=== PATIENT | female | born 1965 | race Caucasian/White ===

== ENCOUNTER 2017-05-15 14:54 | Emergency (ER) | payer MEDICARE ==
[2017-05-15 16:28] LABS: #Monocytes 0.4 thou/uL (0.11-0.59); #Neutrophils 1.9 thou/uL (1.40-6.50); %Basophils 0.8 % (0.0-1.0); %Eosinophils 1.1 % (0.0-10.0); %Lymphocytes 30.3 % (21.0-51.0); %Monocytes 10.8 % (0.0-10.0); Hematocrit 38.2 % (36.0-47.0); Mean Platelet Volume 10.1 fL (7.4-10.4); Red Blood Cell (RBC) Count 3.92 mill/uL (4.20-5.40); White Blood Cell (WBC) Count 3.4 thou/uL (4.8-10.8)
[2017-05-15 16:36] LABS: Lactic Acid - Sepsis 1.2 mmol/L (0.5-2.2)
--- NOTE | 2017-05-15 16:37 | RAD ---
PORTABLE CHEST: 05/15/17 COMPARISON: 12/07/14 study. HISTORY: Hypoglycemia. Heart size is within normal limits considering portable technique. Mediastinal structures are unremar kable. The lungs are clear of infiltrates. IMPRESSION: No active intrathoracic disease. POS: [facility]
[2017-05-15 16:39] LABS: ALT (SGPT) 22 U/L (8-55); AST (SGOT) 29 U/L (5-34); Alkaline Phosphatase 80 U/L (40-150); Anion Gap 12 mmol/L (10-20); BUN (Urea Nitrogen) 17 mg/dL (9.8-20.1); Bilirubin, Total 0.4 mg/dL (0.2-1.2); Calc. Creatinine Clearance 0 mL/min (70-130); Calcium 9.2 mg/dL (7.8-10.44); Carbon Dioxide 27 mmol/L (22-29); Chloride 102 mmol/L (98-107); Estimated GFR-MDRD 37; Protein, Total 6.8 g/dL (6.0-8.3)
[2017-05-15 16:55] LABS: Bilirubin Negative (Negative); Blood, Urine Negative (Negative); Glucose, Urine (Dipstick) Negative (Negative); Ketone, Urine Negative (Negative); Nitrite Negative (Negative); Protein, Urine (Dipstick) Negative (Neg-Trace); Urobilinogen 0.2 mg/dL (0.2-1.0)
--- NOTE | 2017-06-20 14:09 | EKG ---
Test Reason : Blood Pressure : / mmHG Vent. Rate : 055 BPM Atrial Rate : 055 BPM P-R Int : 152 ms QRS Dur : 096 ms QT Int : 508 ms P-R-T Axes : 044 074 045 degrees QTc Int : 485 ms Sinus bradycardia No ST/T wave changes Abnormal ECG Confirmed by IOANA SAWYER DO ([id number]), script editor LEONORA FARLEY ([id number]) on 06/20/2017 2:08:46 PM Referred By: Confirmed By:IOANA SAWYER DO
== END 2017-05-15 19:47 | disposition home or self-care (01) ==
LOC: ERS 14:54
DX: E10.649 Type 1 diabetes mellitus with hypoglycemia without coma (principal); E03.9 Hypothyroidism, unspecified; J45.909 Unspecified asthma, uncomplicated; I12.9 Hypertensive chronic kidney disease with stage 1 through stage 4 chronic kidney disease, or unspecified chronic kidney disease; N18.3 Chronic kidney disease, stage 3 (moderate); F32.9 Major depressive disorder, single episode, unspecified; Z79.891 Long term (current) use of opiate analgesic; Z79.899 Other long term (current) drug therapy; Z79.4 Long term (current) use of insulin
CPT/HCPCS: 36415; 36416; 71010; 80053; 81003; 83605; 85025; 87040; 87086; 93005

== ENCOUNTER 2017-09-04 02:24 | Observation (INO) | payer MEDICARE, OTHER ==
[2017-09-04 03:23] LABS: #Basophils 0.1 thou/uL (0.0-0.2); #Eosinphils 0.1 thou/uL (0.0-0.7); #Lymphocytes 0.9 thou/uL (1.20-3.40); #Monocytes 0.4 thou/uL (0.11-0.59); #Neutrophils 5.2 thou/uL (1.40-6.50); %Basophils 0.8 % (0.0-1.0); %Eosinophils 2.1 % (0.0-10.0); %Monocytes 5.5 % (0.0-10.0); %Neutrophils 77.5 % (42.0-75.0); Hemoglobin 11.1 g/dL (12.0-16.0); Mean Corpuscular HGB CONC 34.3 g/dL (32.0-36.0); Mean Corpuscular Hemoglobin 34.1 pg (27.0-31.0); Mean Corpuscular Volume 99.4 fl (81.0-99.0); Mean Platelet Volume 9.7 fL (7.4-10.4); Platelet Count 107 thou/uL (130-400); RBC Distribution Width 13.9 % (11.5-14.5); Red Blood Cell (RBC) Count 3.26 mill/uL (4.20-5.40); White Blood Cell (WBC) Count 6.7 thou/uL (4.8-10.8)
[2017-09-04 03:28] LABS: INR-International Normal Ratio 1.1; Prothrombin Time 13.9 SEC (12.0-14.7)
[2017-09-04 03:31] LABS: ALT (SGPT) 21 U/L (8-55); AST (SGOT) 33 U/L (5-34); Albumin 2.8 g/dL (3.5-5.0); Alcohol Less than 10 mg/dL (Less than 10); Alkaline Phosphatase 57 U/L (40-150); Anion Gap 10 mmol/L (10-20); BUN (Urea Nitrogen) 14 mg/dL (9.8-20.1); Bilirubin, Total 0.3 mg/dL (0.2-1.2); CK (CPK) 278 U/L (29-168); Calc. Creatinine Clearance 0 mL/min (70-130); Calcium 7.6 mg/dL (7.8-10.44); Carbon Dioxide 22 mmol/L (22-29); Chloride 105 mmol/L (98-107); Estimated GFR-MDRD 55; Glucose 123 mg/dL (70-105); Lipase 7 U/L (8-78); Potassium 3.1 mmol/L (3.5-5.1); Protein, Total 4.8 g/dL (6.0-8.3); Sodium 134 mmol/L (136-145)
[2017-09-04] MEDS ORDERED: Ondansetron HCl/PF 4 MG/2 ML Vial ONE (03:43)
[2017-09-04] MEDS ORDERED: Morphine 4 MG/ML VIAL ONE (05:15)
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
[2017-09-04] MEDS ORDERED: Dextrose 5% in Water 1,000 ML IV PRN (09:29)
[2017-09-04] MEDS ORDERED: Ondansetron HCl/PF 4 MG/2 ML Vial IVP PRN (09:29)
[2017-09-04] MEDS ORDERED: Insulin Regular 300 UNITS/3 ML VIAL SC PRN (09:29)
[2017-09-04] MEDS ORDERED: Dextrose 50% Abboject 50 ML SYRINGE SLOW IVP PRN (09:29)
[2017-09-04] MEDS ORDERED: HYDROcodone/Acetaminophen 5/325 mg Tablet PO PRN ×2 (09:34)
--- NOTE | 2017-09-04 10:04 | RAD ---
TWO VIEWS THORACIC SPINE: HISTORY: T11 compression fracture. Post traumatic pain. COMPARISON: None. CORRELATION: CT from 09/04/2017. FINDINGS: There is mild irregularity involving the superior endplate of T11, compatible with a previously ident ified compression fracture. Remaining thoracic spine vertebral body heights are maintained. IMPRESSION: 1. T11 compression fracture. 2. Minimal loss of vertebral body height. POS: [facility]
[2017-09-04] MEDS: Pregabalin 75 MG CAP PO SCH ×2 (10:37→21:51)
[2017-09-04] MEDS: HYDROcodone/Acetaminophen 10/325 mg Tablet PO PRN ×3 (10:50→21:50)
[2017-09-04 12:18] VITALS: BMI 32.5
[2017-09-04] MEDS ORDERED: ISOVUE-370 76%-LOCM 1 ML ONE (13:37)
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
[2017-09-04] MEDS: Mometasone/Formoterol 120 PUFF INHALER INH SCH (20:02)
[2017-09-04] MEDS ORDERED: Non-Formulary Item 1 EACH (Cyclobenzaprine Hcl [Cyclobenzaprine Hcl] 5 MG) PO SCH (21:00)
[2017-09-04] MEDS ORDERED: NIZATIDINE 150 MG PO SCH (21:00)
[2017-09-04] MEDS ORDERED: Non-Formulary Item 1 EACH (Budesonide-Formoterol [Symbicort 160-4.5] 2 PUFF) INH SCH (21:00)
[2017-09-04] MEDS ORDERED: Famotidine 20 MG TAB PO SCH (21:00)
[2017-09-04] MEDS: Hydroxychloroquine Sulfate 200 MG TAB PO SCH (21:51)
[2017-09-04] MEDS: Cyclobenzaprine 10 MG TAB PO SCH (21:51)
[2017-09-04] MEDS: Famotidine 20 MG TAB PO SCH (21:52)
[2017-09-05 05:14] LABS: #Eosinphils 0.1 thou/uL (0.0-0.7); #Monocytes 0.5 thou/uL (0.11-0.59); #Neutrophils 2.1 thou/uL (1.40-6.50); %Basophils 1.2 % (0.0-1.0); %Eosinophils 2.3 % (0.0-10.0); %Lymphocytes 26.6 % (21.0-51.0); %Monocytes 12.3 % (0.0-10.0); %Neutrophils 57.6 % (42.0-75.0); Hemoglobin 10.9 g/dL (12.0-16.0); Mean Corpuscular HGB CONC 34.4 g/dL (32.0-36.0); Mean Corpuscular Hemoglobin 33.7 pg (27.0-31.0); Mean Corpuscular Volume 97.9 fl (81.0-99.0); Mean Platelet Volume 9.1 fL (7.4-10.4); Platelet Count 116 thou/uL (130-400); RBC Distribution Width 13.7 % (11.5-14.5); Red Blood Cell (RBC) Count 3.25 mill/uL (4.20-5.40); White Blood Cell (WBC) Count 3.6 thou/uL (4.8-10.8)
[2017-09-05 05:26] LABS: Anion Gap 8 mmol/L (10-20); BUN (Urea Nitrogen) 21 mg/dL (9.8-20.1); Calc. Creatinine Clearance 69 mL/min (70-130); Calcium 8.6 mg/dL (7.8-10.44); Carbon Dioxide 29 mmol/L (22-29); Chloride 105 mmol/L (98-107); Estimated GFR-MDRD 44; Glucose 152 mg/dL (70-105); Potassium 4.3 mmol/L (3.5-5.1); Sodium 138 mmol/L (136-145)
[2017-09-05] MEDS: HYDROcodone/Acetaminophen 10/325 mg Tablet PO PRN ×4 (06:12→23:42)
[2017-09-05] MEDS: Mometasone/Formoterol 120 PUFF INHALER INH SCH ×2 (06:47→18:57)
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
[2017-09-05] MEDS: Folic Acid 1 MG TAB PO SCH (07:54)
[2017-09-05] MEDS: Famotidine 20 MG TAB PO SCH ×2 (07:54→20:07)
[2017-09-05] MEDS: Pregabalin 75 MG CAP PO SCH ×2 (07:54→20:07)
[2017-09-05] MEDS: Levothyroxine Sodium 125 MCG TAB PO SCH (07:54)
[2017-09-05] MEDS: Hydroxychloroquine Sulfate 200 MG TAB PO SCH ×2 (07:55→20:07)
[2017-09-05] MEDS ORDERED: Non-Formulary Item 1 EACH (Esomeprazole Magnesium [Nexium] 40 MG) PO SCH (08:00)
[2017-09-05] MEDS ORDERED: Cyanocobalamin (Vitamin B-12) 1,000 MCG TAB PO SCH (09:00)
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
[2017-09-05] MEDS: Cyclobenzaprine 10 MG TAB PO SCH (20:06)
[2017-09-06] MEDS: Hydroxychloroquine Sulfate 200 MG TAB PO SCH (08:11)
[2017-09-06] MEDS: Levothyroxine Sodium 125 MCG TAB PO SCH (08:11)
[2017-09-06] MEDS: Pregabalin 75 MG CAP PO SCH (08:11)
[2017-09-06] MEDS: Folic Acid 1 MG TAB PO SCH (08:11)
[2017-09-06] MEDS: Famotidine 20 MG TAB PO SCH (08:11)
[2017-09-06] MEDS: Mometasone/Formoterol 120 PUFF INHALER INH SCH (10:08)
[2017-09-06 11:58] VITALS: BP 147/88; TEMP 98.4
[2017-09-06] MEDS: HYDROcodone/Acetaminophen 10/325 mg Tablet PO PRN (14:53)
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
== END 2017-09-06 15:49 | disposition home or self-care (01) ==
LOC: ERS 02:24 → SURG B 07:55
PROVIDERS: ADMIT Specialist; ATTEND Specialist
DX: S22.088A Other fracture of T11-T12 vertebra, initial encounter for closed fracture (principal); S22.20XA Unspecified fracture of sternum, initial encounter for closed fracture; G89.11 Acute pain due to trauma; G89.29 Other chronic pain; M35.9 Systemic involvement of connective tissue, unspecified; E03.9 Hypothyroidism, unspecified; J45.909 Unspecified asthma, uncomplicated; E10.22 Type 1 diabetes mellitus with diabetic chronic kidney disease; E10.649 Type 1 diabetes mellitus with hypoglycemia without coma; I12.9 Hypertensive chronic kidney disease with stage 1 through stage 4 chronic kidney disease, or unspecified chronic kidney disease; N18.3 Chronic kidney disease, stage 3 (moderate); M79.7 Fibromyalgia; F32.9 Major depressive disorder, single episode, unspecified; D51.0 Vitamin B12 deficiency anemia due to intrinsic factor deficiency; R91.8 Other nonspecific abnormal finding of lung field; V47.5XXA Car driver injured in collision with fixed or stationary object in traffic accident, initial encounter; Z79.51 Long term (current) use of inhaled steroids; Z79.890 Hormone replacement therapy; Z79.899 Other long term (current) drug therapy; Z88.0 Allergy status to penicillin; Z88.1 Allergy status to other antibiotic agents; Z90.710 Acquired absence of both cervix and uterus; Z98.890 Other specified postprocedural states
CPT/HCPCS: 70450; 71045; 71260; 72070; 72125; 72170; 73130; 73564 ×2; 74177; 80048; 80053; 80307; 82533; 82550; 82962 ×3; 83605; 83690; 85025 ×2; 85610; 85730; 94640 ×3; 96361; 96374; 96375; 97116 ×2; 97139 ×3; 97530; 98960; 99285; G0378 ×2; G8978; G8979; 36415; 36416; G0390; J2270; J2405; J7620

== ENCOUNTER 2017-10-05 13:26 | Outpatient (CLI) | payer MEDICARE ==
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
== END 2017-10-05 13:27 | disposition home or self-care (01) ==
LOC: TBSIIMAG 13:26
PROVIDERS: ATTEND Neurological Surgery
DX: S22.089D Unspecified fracture of T11-T12 vertebra, subsequent encounter for fracture with routine healing (principal); M51.35 Other intervertebral disc degeneration, thoracolumbar region
CPT/HCPCS: 72072

== ENCOUNTER 2017-11-02 12:54 | Outpatient (CLI) | payer MEDICARE ==
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
== END 2017-11-02 12:55 | disposition home or self-care (01) ==
LOC: TBSIIMAG 12:54
PROVIDERS: ATTEND Neurological Surgery
DX: M48.56XA Collapsed vertebra, not elsewhere classified, lumbar region, initial encounter for fracture (principal); M54.6 Pain in thoracic spine; M47.894 Other spondylosis, thoracic region
CPT/HCPCS: 72070

== ENCOUNTER 2017-12-04 13:01 | Outpatient (CLI) | payer MEDICARE, OTHER ==
--- NOTE | 2017-12-04 14:29 | RAD ---
THORACIC SPINE 3 VIEWS: Date: 12/04/17 HISTORY: T11 fracture. Back pain. COMPARISON: 11/02/17. FINDINGS: There are 12 thoracic-type vertebrae. Pedicles are intact. Mild T11 superior end plate compression fr acture is stable compared to the previous exam. Other vertebral body heights and alignment are mainta ined. Mild osteophytosis. Osseous structures are demineralized. IMPRESSION: 1. Mild T11 superior end plate compression fracture, stable. 2. Osteoporosis. POS: [facility]
== END 2017-12-04 13:02 | disposition home or self-care (01) ==
LOC: TBSIIMAG 13:01
PROVIDERS: ATTEND Neurological Surgery
DX: S22.089A Unspecified fracture of T11-T12 vertebra, initial encounter for closed fracture (principal); M81.0 Age-related osteoporosis without current pathological fracture
CPT/HCPCS: 72070

== ENCOUNTER 2020-03-28 02:07 | Observation (INO) | payer MEDICARE, OTHER ==
[2020-03-28 02:45] LABS: Hemoglobin 12.2 g/dL (12.0-16.0); Mean Corpuscular HGB CONC 33.9 g/dL (32.0-36.0); Mean Corpuscular Hemoglobin 33.8 pg (27.0-31.0); Mean Corpuscular Volume 99.7 fL (78.0-98.0); RBC Distribution Width 14.7 % (11.5-14.5); Red Blood Cell (RBC) Count 3.61 mill/uL (4.20-5.40); White Blood Cell (WBC) Count 7.3 thou/uL (4.8-10.8)
[2020-03-28 03:00] LABS: #Eosinphils 0.1 thou/uL (0.0-0.7); #Lymphocytes 0.8 thou/uL (1.20-3.40); #Monocytes 0.4 thou/uL (0.11-0.59); %Basophils 0.6 % (0.0-1.0); %Eosinophils 1.2 % (0.0-10.0); %Lymphocytes 10.9 % (21.0-51.0); %Monocytes 5.5 % (0.0-10.0); %Neutrophils 81.8 % (42.0-75.0); Mean Platelet Volume 10.8 fL (7.4-10.4); Platelet Count 111 thou/uL (130-400); Platelet Morphology Comment Appears Decreased
[2020-03-28 03:12] LABS: ALT (SGPT) 21 U/L (8-55); AST (SGOT) 26 U/L (5-34); Alkaline Phosphatase 72 U/L (40-110); Anion Gap 13 mmol/L (10-20); BUN (Urea Nitrogen) 16 mg/dL (9.8-20.1); Bilirubin, Total 0.7 mg/dL (0.2-1.2); Calc. Creatinine Clearance 0 mL/min (70-130); Calcium 7.7 mg/dL (7.8-10.44); Carbon Dioxide 24 mmol/L (22-29); Chloride 105 mmol/L (98-107); Estimated GFR-MDRD 27; Globulin 2.1 g/dL (2.4-3.5); Glucose 271 mg/dL (70-105); Lipase 8 U/L (8-78); Protein, Total 5.1 g/dL (6.0-8.3); Sodium 137 mmol/L (136-145)
--- NOTE | 2020-03-28 04:36 | PDOC.HHP ---
Hospitalist HPI - History of Present Illness Nausea and vomiting and diarrhea History of Present Illness: 54-year-old woman with a history of fibromyalgia, type 1 diabetes on insulin pump, gastroparesis was brought to the emergency department due to 2-day history of nausea vomiting and diarrhea and generalized weakness. called EMS last night. EMS found her with a blood pressure of 60/40. Her blood pressure responded well to 1 L bolus as she was normotensive by the time she arrived to the ED. CT abdomen and pelvis done report thickened colonic wall colon suggestive of colitis. She has no leukocytosis and no fever, and does not meet criteria for sepsis. feels patient might of had an infection. She is admitted for further management. ED Course: Patient given another 1 L normal saline bolus in the ED. Hospitalist ROS - Review of Systems Other: Except as documented, all other systems reviewed and negative. Hospitalist History - Past Medical History Cardiac: reports: HTN Pulmonary: reports: asthma Heme/Onc: reports: Anemia NOS Psych: reports: Anxiety, Depression Rheumatologic: reports: Fibromyalgia Renal/: reports: Chronic renal failure Endocrine: reports: Diabetes, Hypothyroidism - Past Surgical History Past Surgical History: reports: Hysterectomy - Family History Family History: reports: diabetes mellitus (Maternal grandmother had diabetes.) - Social History Smoking Status: Never smoker Alcohol: reports: None Drugs: reports: none - Exam General Appearance: NAD, awake alert Eye: PERRL, anicteric sclera ENT: normocephalic atraumatic, no oropharyngeal lesions, moist mucosa Neck: supple, symmetric, no JVD, no thyromegaly Heart: RRR, no murmur, normal peripheral pulses Respiratory: CTAB, no wheezes, no rales, no ronchi, normal chest expansion Gastrointestinal: soft, non-tender, non-distended, normal bowel sounds, no palpable masses Extremities: no cyanosis, no edema Skin: normal turgor, no rashes Neurological: cranial nerve grossly intact, no weakness, no focal deficits Musculoskeletal: normal tone, normal strength Psychiatric: normal behavior, A&O x 3 Hospitalist Results - Labs Result Diagrams: 03/28/20 02:35 03/28/20 02:35 Lab results: WBC 7.3 thou/uL (4.8-10.8) 03/28/20 02:35 Hgb 12.2 g/dL (12.0-16.0) 03/28/20 02:35 Hct 36.0 % (36.0-47.0) 03/28/20 02:35 MCV 99.7 fL (78.0-98.0) H 03/28/20 02:35 Plt Count 111 thou/uL (130-400) L 03/28/20 02:35 Neutrophils % 81.8 % (42.0-75.0) H 03/28/20 02:35 Sodium 137 mmol/L (136-145) 03/28/20 02:35 Potassium 5.0 mmol/L (3.5-5.1) 03/28/20 02:35 Chloride 105 mmol/L (98-107) 03/28/20 02:35 Carbon Dioxide 24 mmol/L (22-29) 03/28/20 02:35 BUN 16 mg/dL (9.8-20.1) 03/28/20 02:35 Creatinine 1.95 mg/dL (0.6-1.1) H 03/28/20 02:35 Glucose 271 mg/dL (70-105) H 03/28/20 02:35 Calcium 7.7 mg/dL (7.8-10.44) L 03/28/20 02:35 Total Bilirubin 0.7 mg/dL (0.2-1.2) 03/28/20 02:35 AST 26 U/L (5-34) 03/28/20 02:35 ALT 21 U/L (8-55) 03/28/20 02:35 Alkaline Phosphatase 72 U/L (40-110) 03/28/20 02:35 Troponin I Less than 0.010 ng/mL (< 0.028) 03/28/20 02:35 Serum Total Protein 5.1 g/dL (6.0-8.3) L 03/28/20 02:35 Albumin 3.0 g/dL (3.5-5.0) L 03/28/20 02:35 Lipase 8 U/L (8-78) 03/28/20 02:35 Hospitalist H&P A/P - Problem (1) Hypovolemic shock Code(s): R57.1 - HYPOVOLEMIC SHOCK Status: Acute (2) Intractable nausea and vomiting Code(s): R11.2 - NAUSEA WITH VOMITING, UNSPECIFIED Status: Acute (3) Acute worsening of stage 3 chronic kidney disease Code(s): N18.3 - CHRONIC KIDNEY DISEASE, STAGE 3 (MODERATE) Status: Acute (4) Diabetes type 1, controlled Code(s): E10.9 - TYPE 1 DIABETES MELLITUS WITHOUT COMPLICATIONS Status: Acute (5) Hx of diabetic gastroparesis Code(s): Z86.39 - PERSONAL HISTORY OF ENDO, NUTRITIONAL AND METABOLIC DISEASE Status: Acute (6) Colitis Code(s): K52.9 - NONINFECTIVE GASTROENTERITIS AND COLITIS, UNSPECIFIED Status: Acute - Plan Plan: Admit to telemetry. Aggressive IV hydration Start IV ciprofloxacin and Flagyl for possible infectious colitis. Continue insulin pump for glucose management. Antiemetics as needed. Add PPI. Clear liquid diet as patient will tolerate. Monitor renal function.
[2020-03-28] MEDS ORDERED: Ondansetron PF 4 MG/2 ML Vial IVP PRN (05:13)
[2020-03-28] MEDS ORDERED: Acetaminophen 325 MG TAB PO PRN (05:13)
[2020-03-28] MEDS ORDERED: Sodium Chloride 0.9% 1,000 ML IV SCH (05:15)
[2020-03-28 06:25] VITALS: BMI 30.7
[2020-03-28] MEDS: metroNIDAZOLE 500 MG in Premix Bag 1 BAG IVPB SCH ×3 (06:37→17:08)
[2020-03-28] MEDS ORDERED: Dextrose 50% Abboject 50 ML SYRINGE ONE (07:21)
[2020-03-28] MEDS ORDERED: Dextrose 5 % And 0.9 % NaCl 1,000 ML IV SCH (07:30)
[2020-03-28] MEDS: Heparin 5,000 UNITS/ML VIAL SC SCH ×3 (08:03→21:49)
--- NOTE | 2020-03-28 08:04 | RAD ---
XR Chest 1 View Portable History: Hypotension Comparison: Radiograph August 2017 Findings: Chronic interstitial fibrosis and cardiomegaly is similar. Calcified granuloma right midlun g is similar. No acute osseous abnormality. No confluent airspace consolidation, pneumothorax or effusion. Impression: Chronic findings. No acute intrathoracic abnormality.
--- NOTE | 2020-03-28 08:55 | CT ---
PRELIMINARY REPORT/[facility]/EMERGENCY AFTER HOURS PROCEDURE: EXAM: CT Abdomen and Pelvis with Intravenous Contrast CLINICAL HISTORY: PT HAS HAD DIARRHEA/VOMITING FOR 2 DAYS. TECHNIQUE: Axial computed tomography images of the abdomen and pelvis with intravenous contrast. CONTRAST: With; ISOVUE 370,100mL COMPARISON: None provided. FINDINGS: LUNG BASES: Septal groundglass pattern in the lower lungs suggests combination of interstitial edema and atelectasis. LIVER: Unremarkable. GALLBLADDER AND BILE DUCTS: Unremarkable. No calcified stone. No ductal dilation. PANCREAS: Unremarkable. SPLEEN: Unremarkable. ADRENAL GLANDS: Unremarkable. KIDNEYS, URETERS, AND BLADDER: Unremarkable. No hydronephrosis or nephrolithiasis. No ureteral or maryjane dder calculi. STOMACH AND BOWEL: Diffuse wall thickening of the distal colon from the mid transverse colon to the s igmoid colon. Proximal large bowel shows moderate distention with air and fecal material raising conc jina for partial obstruction. APPENDIX: The appendix is not visualized. No inflammatory changes dentified in the right lower quadra nt and pericecal distribution. PERITONEUM: There is trace fluid in the pelvis. No evidence for free air. LYMPH NODES: No lymphadenopathy. REPRODUCTIVE: Unremarkable as visualized. VASCULATURE: No aortic aneurysm. BONES: No fracture or suspicious osseous abnormality. ABDOMINAL WALL AND SOFT TISSUES: Unremarkable. IMPRESSION: Findings suggestive of a distal colitis involving the mid transverse left and sigmoid col on which may be infectious or inflammatory Large amount of becoming too in the proximal colon raising concern for partial obstruction. ELECTRONICALLY SIGNED BY: Dodie Beatty MD Mar 28, 2020 3:10:50 AM CDT FINAL REPORT EMERGENT AFTER HOURS CT OF THE ABDOMEN AND PELVIS WITH CONTRAST: FINDINGS/IMPRESSION: I agree with the findings and impression given in the preliminary report per [facility] physici an. There are areas of focal thickening in the colon near the left splenic flexor and in the sigmoid colon. These are discontinuous with sparing of some of the descending colon. These are nonspecific and could represent an infectious or inflammatory colitis. POS: [facility]
[2020-03-28] MEDS ORDERED: Iopamidol-370 76% 500 ML 1 ML ONE (08:57)
[2020-03-28 09:41] LABS: Glucose 210 mg/dL (70-105)
[2020-03-28] MEDS: Famotidine 20 MG TAB PO SCH ×2 (12:26→21:49)
[2020-03-28 13:17] LABS: SARS-CoV-2 MS2 Positive; SARS-CoV-2 N Gene Negative; SARS-CoV-2 S Gene Negative; SARS-CoV-2 by NAA Not Detected (NotDetected); SARS-CoV-2 orf1ab Negative
[2020-03-28 13:32] LABS: Glucose 410 mg/dL (70-105)
--- NOTE | 2020-03-28 13:35 | PDOC.HOSPP ---
- Subjective Encounter Date: 03/28/20 Encounter Time: 12:00 Subjective: Ms. Ventura was seen today in follow-up of hypoglycemia, and lethargy. She was noted by her nurse to be drowsy. She is oriented X 4 but will fall asleep easily. She does not have any complaints such as pain, nausea or vomiting. - Objective Vital Signs & Weight: Vital Signs (12 hours) Temp Pulse Resp BP Pulse Ox 03/28/20 11:40 73 12 118/56 L 93 L 03/28/20 07:17 98.6 F 78 12 111/53 L 94 L 03/28/20 06:08 99.3 F 82 17 118/58 L 95 Weight Weight 179 lb I&O: 03/27/20 03/28/20 03/29/20 06:59 06:59 06:59 Intake Total 785 Balance 785 Result Diagrams: 03/28/20 02:35 03/28/20 12:40 Additional Labs: Accuchecks 03/28/20 03/28/20 03/28/20 11:18 08:00 07:23 POC Glucose 302 H 128 H 69 L 03/28/20 06:26 POC Glucose 88 Hospitalist ROS - Medication Medications: Active Medications Generic Name Dose Route Start Last Admin Trade Name Freq PRN Reason Stop Dose Admin Famotidine 20 mg 03/28/20 09:00 03/28/20 12:26 Famotidine 20 Mg Tab PO Not Given BID ELIO Heparin Sodium (Porcine) 5,000 units 03/28/20 09:00 03/28/20 08:03 Heparin 5,000 Units/Ml Vial SC 5,000 units TID ELIO Administration Ciprofloxacin/Dextrose 400 mg/ 200 mls @ 200 mls/hr 03/28/20 08:00 03/28/20 08:03 Device IVPB 200 mls 0800,2000 ELIO Administration Metronidazole 500 mg/ Device 100 mls @ 100 mls/hr 03/28/20 06:00 03/28/20 12:25 IVPB 100 mls Q6HR ELIO Administration Dextrose/Sodium Chloride 1,000 mls @ 100 mls/hr 03/28/20 07:30 03/28/20 08:02 D5 0.9% Ns IV 1,000 mls .Q10H ELIO Administration - Exam Eye: PERRL, anicteric sclera Heart: RRR, no murmur, no gallops, no rubs, normal peripheral pulses Respiratory: CTAB, no wheezes, no rales, no ronchi, normal chest expansion, no tachypnea Gastrointestinal: soft, non-tender, non-distended, normal bowel sounds, no palpable masses, no hepatomegaly Extremities: no cyanosis, no edema Hosp A/P (1) Hypoglycemia Code(s): E16.2 - HYPOGLYCEMIA, UNSPECIFIED Status: Acute (2) Colitis Code(s): K52.9 - NONINFECTIVE GASTROENTERITIS AND COLITIS, UNSPECIFIED Status: Acute (3) Diabetes type 1, controlled Code(s): E10.9 - TYPE 1 DIABETES MELLITUS WITHOUT COMPLICATIONS Status: Chronic (4) Hypertension Code(s): I10 - ESSENTIAL (PRIMARY) HYPERTENSION Status: Chronic - Plan * Hypoglycemia- this may be due to colitis- she briefly required D% drip, now he r blood glucose is elevated- will place her back on her insulin pump, at 2/3 her basal rate with self correction * She will need to be monitored at least one more night to insure stability of her glucose levels. Will change her status to inpatient * Metabolic encephalopathy- I suspect due to hypoglycemia- and colitis- will monitor * HTN- blood pressure is stable * Colitis- continue Cipro and Flagyl, advance diet as tolerated
[2020-03-28] MEDS ORDERED: Fluticasone Propionate Nasal Spray 16 gm Bottle NASAL PRN (13:38)
[2020-03-28] MEDS ORDERED: Methotrexate Sodium 2.5 MG TAB PO SCH (13:45)
[2020-03-28 17:40] LABS: Glucose 328 mg/dL (70-105)
[2020-03-28] MEDS: Mometasone 200 MCG/Formoterol 5 MCG 120 PUFF INHALER INH SCH (18:26)
[2020-03-28] MEDS ORDERED: Atorvastatin Calcium 10 MG TAB PO SCH (21:00)
[2020-03-28 21:32] LABS: Glucose 289 mg/dL (70-105)
[2020-03-28] MEDS: Hydroxychloroquine Sulfate 200 MG TAB PO SCH (21:50)
[2020-03-29] MEDS: metroNIDAZOLE 500 MG in Premix Bag 1 BAG IVPB SCH ×3 (01:13→11:16)
[2020-03-29 05:16] LABS: #Basophils 0.1 thou/uL (0.0-0.2); #Eosinphils 0.1 thou/uL (0.0-0.7); #Monocytes 0.4 thou/uL (0.11-0.59); #Neutrophils 2.3 thou/uL (1.40-6.50); %Basophils 1.7 % (0.0-1.0); %Eosinophils 2.9 % (0.0-10.0); %Lymphocytes 25.2 % (21.0-51.0); %Monocytes 11.4 % (0.0-10.0); %Neutrophils 58.8 % (42.0-75.0); Hemoglobin 12.1 g/dL (12.0-16.0); Mean Corpuscular HGB CONC 33.8 g/dL (32.0-36.0); Mean Corpuscular Hemoglobin 33.7 pg (27.0-31.0); Mean Corpuscular Volume 99.8 fL (78.0-98.0); Mean Platelet Volume 10.9 fL (7.4-10.4); Platelet Count 118 thou/uL (130-400); RBC Distribution Width 14.7 % (11.5-14.5); Red Blood Cell (RBC) Count 3.59 mill/uL (4.20-5.40); White Blood Cell (WBC) Count 3.9 thou/uL (4.8-10.8)
[2020-03-29 05:30] LABS: Anion Gap 11 mmol/L (10-20); BUN (Urea Nitrogen) 12 mg/dL (9.8-20.1); Calc. Creatinine Clearance 57 mL/min (70-130); Calcium 7.8 mg/dL (7.8-10.44); Carbon Dioxide 23 mmol/L (22-29); Chloride 109 mmol/L (98-107); Estimated GFR-MDRD 38; Glucose 157 mg/dL (70-105); Potassium 4.2 mmol/L (3.5-5.1); Sodium 139 mmol/L (136-145)
[2020-03-29] MEDS ORDERED: Levothyroxine Sodium 125 MCG TAB PO SCH (06:00)
[2020-03-29] MEDS: Mometasone 200 MCG/Formoterol 5 MCG 120 PUFF INHALER INH SCH (06:55)
[2020-03-29] MEDS: Heparin 5,000 UNITS/ML VIAL SC SCH (08:01)
[2020-03-29] MEDS: Hydroxychloroquine Sulfate 200 MG TAB PO SCH (08:02)
--- NOTE | 2020-03-29 08:23 | PDOC.HOSPP ---
- Subjective Encounter Date: 03/29/20 Encounter Time: 08:21 Subjective: Ms. Ventura was seen today in follow-up of hypoglycemia and colitis. She is feeling better today. She is much more alert. - Objective Vital Signs & Weight: Vital Signs (12 hours) Temp Pulse Resp BP BP Pulse Ox 03/29/20 07:08 98.2 F 62 16 148/66 H 99 03/29/20 04:19 97.9 F 63 16 142/64 H 99 03/29/20 01:08 98.5 F 65 12 127/60 96 03/28/20 21:29 98.6 F 73 12 110/51 L 100 Weight Weight 178 lb 9.6 oz I&O: 03/28/20 03/29/20 03/30/20 06:59 06:59 06:59 Intake Total 2247 Output Total 2030 Balance 217 Result Diagrams: 03/29/20 04:48 03/29/20 08:06 Additional Labs: Accuchecks 03/29/20 03/29/20 03/29/20 07:18 04:22 01:14 POC Glucose 107 H 160 H 207 H 03/28/20 03/28/20 14:51 11:18 POC Glucose 348 H 302 H Hospitalist ROS - Medication Medications: Active Medications Generic Name Dose Route Start Last Admin Trade Name Freq PRN Reason Stop Dose Admin Acetaminophen 650 mg 03/28/20 05:13 03/28/20 21:57 Acetaminophen 325 Mg Tab PO 650 mg Q4H PRN Administration Headache/Fever/Mild Pain (1-3) Atorvastatin Calcium 10 mg 03/28/20 21:00 03/28/20 21:49 Atorvastatin Calcium 10 Mg Tab PO 10 mg HS ELIO Administration Bupropion HCl 150 mg 03/29/20 09:00 03/29/20 08:02 Bupropion 150 Mg Xl Tab PO 150 mg QAM ELIO Administration Estradiol 2 mg 03/29/20 09:00 03/29/20 08:02 Estradiol 1 Mg Tab PO 2 mg DAILY ELIO Administration Folic Acid 1 mg 03/29/20 09:00 03/29/20 08:02 Folic Acid 1 Mg Tab PO 1 mg DAILY ELIO Administration Furosemide 40 mg 03/29/20 09:00 03/29/20 08:02 Furosemide 40 Mg Tab PO 40 mg DAILY ELIO Administration Heparin Sodium (Porcine) 5,000 units 03/28/20 09:00 03/29/20 08:01 Heparin 5,000 Units/Ml Vial SC 5,000 units TID ELIO Administration Hydroxychloroquine Sulfate 200 mg 03/28/20 21:00 03/29/20 08:02 Hydroxychloroquine Sulfate 200 Mg Tab PO 200 mg BID ELIO Administration Ciprofloxacin/Dextrose 400 mg/ 200 mls @ 200 mls/hr 03/28/20 08:00 03/29/20 08:02 Device IVPB 200 mls 0800,2000 ELIO Administration Metronidazole 500 mg/ Device 100 mls @ 100 mls/hr 03/28/20 06:00 03/29/20 05:53 IVPB 100 mls Q6HR ELIO Administration Levothyroxine Sodium 125 mcg 03/29/20 06:00 03/29/20 05:52 Levothyroxine Sodium 125 Mcg Tab PO 125 mcg 0600 ELIO Administration Losartan Potassium 25 mg 03/29/20 09:00 03/29/20 08:02 Losartan 25 Mg Tab PO 25 mg DAILY ELIO Administration Methotrexate Sodium 20 mg 03/28/20 13:45 03/28/20 15:35 Methotrexate Sodium 2.5 Mg Tab PO Not Given Q7D ELIO Mometasone Furoate/Formoterol Fumar 2 puff 03/28/20 18:30 03/29/20 06:55 Mometasone 200 Mcg/Formoterol 5 Mcg 120 Puff Inhaler INH 2 puff BID-RT ELIO Administration Prednisone 10 mg 03/29/20 09:00 03/29/20 08:02 Prednisone 5 Mg Tab PO 10 mg DAILY ELIO Administration - Exam Eye: PERRL Heart: RRR, no murmur, no gallops, no rubs, normal peripheral pulses Respiratory: CTAB, no wheezes, no rales, no ronchi, normal chest expansion Gastrointestinal: soft, non-tender, non-distended, normal bowel sounds, no palpable masses, no hepatomegaly Extremities: no cyanosis, no edema Hosp A/P (1) Hypoglycemia Code(s): E16.2 - HYPOGLYCEMIA, UNSPECIFIED Status: Acute (2) Colitis Code(s): K52.9 - NONINFECTIVE GASTROENTERITIS AND COLITIS, UNSPECIFIED Status: Acute (3) Diabetes type 1, controlled Code(s): E10.9 - TYPE 1 DIABETES MELLITUS WITHOUT COMPLICATIONS Status: Chronic (4) Hypertension Code(s): I10 - ESSENTIAL (PRIMARY) HYPERTENSION Status: Chronic - Plan * Hypoglycemia- improved * DM- her blood glucose is much more stable today * Metabolic encephalopathy-resolved * HTN- blood pressure is stable * Colitis- continue Aliciaro and Sunni, * Hopefully home this afternoon
[2020-03-29 08:43] LABS: Glucose 93 mg/dL (70-105)
[2020-03-29] MEDS ORDERED: Bupropion 150 MG XL TAB PO SCH (09:00)
[2020-03-29] MEDS ORDERED: predniSONE 5 MG TAB PO SCH (09:00)
[2020-03-29] MEDS ORDERED: Folic Acid 1 MG TAB PO SCH (09:00)
[2020-03-29] MEDS ORDERED: Furosemide 40 MG TAB PO SCH (09:00)
[2020-03-29] MEDS ORDERED: Losartan 25 MG TAB PO SCH (09:00)
[2020-03-29] MEDS ORDERED: Estradiol 1 MG TAB PO SCH (09:00)
[2020-03-29 11:15] VITALS: BP 135/61; TEMP 97.6
[2020-03-29] MEDS ORDERED: Famotidine 20 MG TAB PO SCH (21:00)
--- NOTE | 2020-03-30 03:14 | DIS ---
DATE OF ADMISSION: 03/28/2020 DATE OF DISCHARGE: 03/29/2020 DISCHARGE DISPOSITION: Home. DISCHARGE DIAGNOSES: 1. Presumed infectious colitis. 2. Hypoglycemia. 3. Type 1 diabetes mellitus. 4. . 5. Acute kidney injury, resolved. DISCHARGE MEDICATIONS: Include: 1. Florastor 250 mg p.o. daily. 2. Flagyl 500 mg p.o. t.i.d. 3. Cipro 500 mg p.o. q.12. 4. Xopenex 1 puff q.4 hours as needed. 5. Synthroid 125 mcg p.o. daily. 6. Symbicort 80/4.5 two puffs twice daily. 7. Singulair 10 mg p.o. daily. 8. Prednisone 10 mg p.o. daily. 9. Plaquenil 200 mg p.o. b.i.d. 10. Grulla 5/325 one tablet q.12 as needed. 11. Nexium 40 mg p.o. daily. 12. Methotrexate 2.5 mg 8 tablets every 7 days. 13. Lyrica 150 mg p.o. t.i.d. 14. Lipitor 10 mg p.o. q.h.s. 15. Lasix 40 mg p.o. daily. 16. Folic acid 1 mg p.o. daily. 17. Estrace 2 mg p.o. daily. 18. Vitamin B12 1000 mcg every 30 days. 19. Losartan 25 mg p.o. daily. 20. Bupropion 150 mg extended release q. day. 21. 150 mg p.o. t.i.d. IMAGING: The patient had a CT scan of the abdomen and pelvis, in which there was some focal thickening of the colon near the splenic flexure and in the sigmoid colon, which could represent an infectious or inflammatory colitis. CODE STATUS: Full code. ALLERGIES: TO CLARITHROMYCIN AND PENICILLIN. HOSPITAL COURSE: Ms. Ventura is a pleasant 54-year-old female, who presented to the emergency room with nausea, vomiting, and diarrhea. She was also found to be hypoglycemic and hypotensive. The full details of which are outlined in the history and physical by Dr. Steiner. She was admitted to the hospital and started on IV antibiotics including ciprofloxacin and Flagyl. She was found to again be hypoglycemic. She was on an insulin pump, which was discontinued while she was hypoglycemic. Shortly thereafter, her blood glucose shot up and her insulin pump was restarted back at a lower rate. She was allowed to auto or self correct. We kept her in the hospital an additional day to make sure that her blood glucose stabilized. Once the glucose was stabilized, she was able to be discharged home and to follow up with her primary care physician in 1 to 2 weeks. Job ID: [id number]
== END 2020-03-29 14:31 | disposition home or self-care (01) ==
LOC: ERS 02:07 → 2SW 04:47
PROVIDERS: ADMIT Internal Medicine; ATTEND Internal Medicine
DX: E10.649 Type 1 diabetes mellitus with hypoglycemia without coma (principal); I95.9 Hypotension, unspecified; K52.9 Noninfective gastroenteritis and colitis, unspecified; G93.41 Metabolic encephalopathy; M79.7 Fibromyalgia; E10.43 Type 1 diabetes mellitus with diabetic autonomic (poly)neuropathy; K31.84 Gastroparesis; J45.909 Unspecified asthma, uncomplicated; F41.9 Anxiety disorder, unspecified; F32.9 Major depressive disorder, single episode, unspecified; I12.9 Hypertensive chronic kidney disease with stage 1 through stage 4 chronic kidney disease, or unspecified chronic kidney disease; E10.22 Type 1 diabetes mellitus with diabetic chronic kidney disease; N18.30 Chronic kidney disease, stage 3 unspecified; E03.9 Hypothyroidism, unspecified; Z79.52 Long term (current) use of systemic steroids; Z79.899 Other long term (current) drug therapy; Z88.0 Allergy status to penicillin; Z88.1 Allergy status to other antibiotic agents; Z96.41 Presence of insulin pump (external) (internal); Z20.828 Contact with and (suspected) exposure to other viral communicable diseases
CPT/HCPCS: 36600; 71045; 74177; 80048; 80053; 82010; 82947 ×2; 82962 ×2; 83690; 84484; 85025 ×2; 93005; 94640 ×2; 96360; 99285; U0003; 36415; 36416; 87635; 96361; 96365; 96366; 96367; 96372; 96375; 96376; G0378; J0744; J1644; J7512; Q9967